=== PATIENT | male | born 1950 | race Caucasian/White ===

== ENCOUNTER → 2022-06-12 15:43 | Outpatient (BNVA) | payer MEDICARE, SELFPAY | PROVIDERS: Visit Provider Nurse Practitioner | DX: S69.91XA Unspecified injury of right wrist, hand and finger(s), initial encounter (principal); X58.XXXA Exposure to other specified factors, initial encounter; M19.041 Primary osteoarthritis, right hand | CPT/HCPCS: 73130 ==